=== PATIENT | female | born 1990 | race Caucasian/White ===

== ENCOUNTER 2019-11-01 07:22 | Emergency (ER) | payer SELFPAY ==
--- NOTE | ~2019-11-01 | CT_ITS ---
EXAMINATION: CT abdomen pelvis wo con DATE: 11/01/2019 08:05 INDICATION: Right flank pain TECHNIQUE: Computed tomography (CT) of the abdomen and pelvis was performed without intravenous contr ast. The dose-length product was 208.95 mGy-cm. Automated exposure control and iterative reconstructi on technique were employed. COMPARISON: None. FINDINGS: Lung bases are unremarkable. Heart size normal. No significant pleural or pericardial effus ion. There is a 3 mm calcification in the right pelvis, suspicious for a UVJ stone. No significant hy dronephrosis. There is a 4 mm nonobstructing left renal stone. There are smaller punctate stones in t he lower pole of the left kidney. The liver, spleen, pancreas, adrenal glands are unremarkable for noncontrast CT. Gallbladder is prese nt. Nonobstructive bowel gas pattern. No acute bone or joint abnormality. IMPRESSION: 1. Possible 3 mm right UVJ stone. No significant hydronephrosis. 2: Nonobstructing left nephrolithiasis. Reviewed, dictated and finalized at location A.
[2019-11-01 07:27] VITALS: BP 108/81; PULSE 82; RESP 19; TEMP 36.7; O2SAT 100
[2019-11-01 07:47] LABS: Basophils Percent Auto 0.5 % (0.2-1.2); Eosinophils Absolute Auto 0.3 K/mm3 (0-0.3); Eosinophils Percent Auto 3.2 % (0-4.4); Hematocrit 44.1 % (37.0-47.0); Hemoglobin 14.5 g/dL (12.0-15.0); Immature Granulocyte Absolute 0.02 K/mm3 (0.00-0.031); Immature Granulocyte Percent A 0.2 % (0-0.5); Lymphocytes Absolute Auto 2.17 K/mm3 (0.9-3.2); Lymphocytes Percent Auto 26.8 % (18.3-44.2); Mean Corpuscular HGB Conc 32.9 g/dl (32-36); Mean Corpuscular Hemoglobin 29.9 pg (26-34); Mean Corpuscular Volume 90.9 fl (80-100); Mean Platelet Volume 9.1 fl (7.4-10.4); Monocytes Absolute Auto 0.5 K/mm3 (0.1-0.6); Monocytes Percent Auto 5.8 % (2.6-8.5); Neutrophils Absolute Auto 5.1 K/mm3 (1.3-6.7); Neutrophils Percent Auto 63.5 % (45.5-73.1); Platelet Count Result 300 k/mm3 (150-375); Red Blood Count 4.85 M/mm3 (4.2-5.4); Red Cell Distribution Width 13.4 % (11.5-14.5); White Blood Count 8.1 K/mm3 (4.5-10.0)
[2019-11-01] MEDS: KETOROLAC 30 MG/ML VIAL (*BKC) IV PUSH (07:47)
--- NOTE | 2019-11-01 07:59 | ED.FEMALEGU ---
HPI - Female Genitourinary General Chief complaint: Urogenital-Female Stated complaint: ?? kidney stones Time Seen by Provider: 11/01/19 07:30 History of Present Illness HPI Narrative: Patient is a 29-year-old female with history of kidney stones who presents the ER with sudden onset right flank pain right lower quadrant abdominal pain beginning this morning. Associated with urinary frequency and urgency as well as small volumes of urine when voiding. No aggravating or alleviating factors. Pain radiates from flank to abdomen. No fever/chills/sweats/nausea/vomiting. No recent travel. Related Data Allergies Allergy/AdvReac Type Severity Reaction Status Date / Time Penicillins Allergy Severe Unknown Verified 11/01/19 07:37 Review of Systems Review of Systems: All systems reviewed & are unremarkable except as noted in HPI and below Constitutional: Constitutional: Denies chills and Denies fever(s) Gastrointestinal: Gastrointestinal: Reports abdominal pain, Denies diarrhea, Denies nausea and Denies vomiting Genitourinary: Genitourinary: Denies hematuria, Reports nocturia, Reports dysuria and Reports urinary urgency [facility] Past Medical History Medical History (Updated 11/01/19 @ 09:43 by Michele Austin MD) Kidney stones Surgical History Surgical History (Updated 11/01/19 @ 08:01 by Michele Austin MD) No pertinent past surgical history Social History Social History (Updated 11/01/19 @ 08:01 by Michele Austin MD) Smoking status: Current every day smoker Alcohol intake: current Substance use type: marijuana Gender identity (if verbalized by the patient): Female Exam Narrative: Exam Narrative: GENERAL: Well-appearing, well-nourished, and in no acute distress. HEAD: Normocephalic, atraumatic. ENT: Mucous membranes moist. CHEST: Clear to auscultation. No respiratory distress. HEART: Regular rate and rhythm. Normal peripheral pulses. ABDOMEN: Soft, mild right lower quadrant abdominal tenderness, nondistended, right CVA tenderness. EXTREMITIES: Normal range of motion. No edema. NEURO: Alert and oriented x3. PSYCH: Normal mood and affect. Course Course Emergency Course: Informed of results. Pain improved. D/c. Vital Signs Vital signs: Vital Signs Temperature 98.0 F 11/01/19 07:27 Pulse Rate 82 11/01/19 07:27 Respiratory Rate 19 03/21/20 07:27 Blood Pressure 108/81 11/01/19 07:27 Pulse Oximetry 100 11/01/19 07:27 Temperature 98.0 F 11/01/19 07:27 Pulse Rate 82 11/01/19 07:27 Respiratory Rate 19 11/01/19 07:27 Blood Pressure 108/81 11/01/19 07:27 Pulse Oximetry 100 11/01/19 07:27 MDM - Female Genitourinary Lab Data Result diagrams: 11/01/19 07:41 11/01/19 07:41 Labs: Lab Results 11/01/19 11/01/19 11/01/19 Range/Units 07:41 07:41 07:52 WBC 8.1 (4.5-10.0) K/mm3 RBC 4.85 (4.2-5.4) M/mm3 Hgb 14.5 (12.0-15.0) g/dL Hct 44.1 (37.0-47.0) % MCV 90.9 (80-100) fl MCH 29.9 (26-34) pg MCHC 32.9 (32-36) g/dl RDW 13.4 (11.5-14.5) % Plt Count 300 (150-375) k/mm3 MPV 9.1 (7.4-10.4) fl Immature Gran % (Auto) 0.2 (0-0.5) % Neut % (Auto) 63.5 (45.5-73.1) % Lymph % (Auto) 26.8 (18.3-44.2) % [place] % (Auto) 5.8 (2.6-8.5) % Eos % (Auto) 3.2 (0-4.4) % Baso % (Auto) 0.5 (0.2-1.2) % Lymph # (Auto) 2.17 (0.9-3.2) K/mm3 [place] # (Auto) 0.5 (0.1-0.6) K/mm3 Eos # (Auto) 0.3 (0-0.3) K/mm3 Baso # (Auto) 0.0 (0.0-0.1) K/mm3 Abs Immat Gran (auto) 0.02 (0.00-0.031) K/mm3 Absolute Neuts (auto) 5.1 (1.3-6.7) K/mm3 Absolute Nucleated RBC 0.0 (0.0-0.012) K/mm3 Nucleated RBC % 0.0 (0.0-0.2) % Sodium 137 (137-145) mmol/L Potassium 4.4 (3.4-5.0) mmol/L Chloride 105 (98-107) mmol/L Carbon Dioxide 27 (22-30) mmol/L BUN 13 (7-17) mg/dL Creatinine 0.80 (0.7-1.0) mg/dL Estim Creat Clear Calc 77 ml/min Est
[2019-11-01 08:09] LABS: Blood Urea Nitrogen 13 mg/dL (7-17); Calcium 9.3 mg/dL (8.4-10.2); Carbon Dioxide 27 mmol/L (22-30); Chloride 105 mmol/L (98-107); Estimated CRCL calculation 77 ml/min; Estimated Glomerular Filt Rate > 60; Glucose 93 mg/dL (65-105); Potassium 4.4 mmol/L (3.4-5.0); Sodium 137 mmol/L (137-145)
[2019-11-01 08:10] LABS: Add Urine Microscopic? YES; Appearance Urine Clear (Clear); Bacteria Urine Trace /hpf; Bilirubin Urine Negative (Negative); Blood Urine 1+ (Negative); Color Urine Yellow (Yellow); Glucose Urine UA Negative (Negative); Ketones Urine Negative (Negative); Leukocyte Esterase Ur Negative LEU/UL (Negative); Mucus Urine Rare /lpf; Nitrate Urine Negative (Negative); Protein Urine Negative (Negative); Specific Grav Ur 1.017 (1.001-1.035); Squamous Epithelial Cell Urine Few /hpf (Few); Urobilinogen Urine Negative mg/dL (<2.0); WBC Urine 0-3 /hpf
[2019-11-01 10:19] VITALS: BP 112/69; PULSE 62; RESP 16; O2SAT 100
== END 2019-11-01 10:24 | disposition home or self-care (01) ==
PROVIDERS: Emergency Provider Emergency Medicine
DX: N20.2 Calculus of kidney with calculus of ureter (principal); Z87.442 Personal history of urinary calculi; F17.200 Nicotine dependence, unspecified, uncomplicated
CPT/HCPCS: 36415; 74176; 80048; 81001; 81025; 85025; 96374; 99284; J1885

== ENCOUNTER 2020-11-30 10:30 | Day surgery (SDC) | payer OTHER, SELFPAY ==
[2020-11-30] VITALS (10 sets, daily range): BP systolic 96–117; BP diastolic 64–93; PULSE 52–93; RESP 14–20; TEMP 36.2–36.8; O2SAT 98–100
--- NOTE | ~2020-11-30 | CT_ITS ---
EXAMINATION: CT abdomen pelvis wo con DATE: 11/30/2020 13:48 INDICATION: Left flank pain. TECHNIQUE: Computed tomography (CT) of the abdomen and pelvis was performed without intravenous contr ast. Automated exposure control and iterative reconstruction technique were employed. The dose-length product was 167.00 mGy-cm. COMPARISON: CT abdomen and pelvis 11/01/2019 FINDINGS: The visualized portions of the lung bases demonstrate minimal atelectasis on the left. No p leural effusion. The heart size is normal. No pericardial effusion. The liver, gallbladder, and pancr eas are normal. Calcifications in the spleen are consistent with old granulomatous disease. The adren al glands and right kidney are normal. There is mild left hydronephrosis and hydroureter. There is a 5 mm stone in left ureter where it crosses the iliac vessels. There are no dilated loops of bowel. Th e appendix is normal. There are no pathologically enlarged lymph nodes. There is no free intraperiton eal fluid. The bones are unremarkable. IMPRESSION: 1. 5 mm stone in mid left ureter with mild left hydronephrosis and proximal hydroureter. Reviewed, dictated and finalized at location B. IMPRESSION: 1. 5 mm stone in mid left ureter with mild left hydronephrosis and proximal hyd roureter.
--- NOTE | ~2020-11-30 | XR_ITS ---
EXAMINATION: XR retrograde pyelo w/stent LT DATE: 11/30/2020 16:28 INDICATION: Left ureteral stone. TECHNIQUE: 8 intraoperative fluoroscopic views of the abdomen and pelvis were obtained. COMPARISON: CT abdomen and pelvis 11/30/2020 FINDINGS: The sewage plant attendant images demonstrate a 5 mm stone in the left ureter overlying the sacrum. The left -sided retrograde pyelogram is unremarkable. The final images demonstrate a left internal ureteral st ent in expected position. IMPRESSION: 1. Left ureteral stone removal. 2. Left internal ureteral stent in expected position. Reviewed, dictated and finalized at location B.
[2020-11-30 11:05] LABS: Anion Gap 7 mmol/L (8-16); Blood Urea Nitrogen 8 mg/dL (7-17); Calcium 9.1 mg/dL (8.4-10.2); Carbon Dioxide 27 mmol/L (22-30); Chloride 106 mmol/L (98-107); Estimated CRCL calculation 82 ml/min; Estimated Glomerular Filt Rate > 60; Glucose 89 mg/dL (65-105); Potassium 4.1 mmol/L (3.4-5.0); Sodium 140 mmol/L (137-145)
[2020-11-30 11:09] LABS: Basophils Percent Auto 0.4 % (0.2-1.2); Eosinophils Absolute Auto 0.1 K/mm3 (0-0.3); Eosinophils Percent Auto 1.1 % (0-4.4); Hematocrit 40.1 % (37.0-47.0); Hemoglobin 12.9 g/dL (12.0-15.0); Immature Granulocyte Absolute 0.03 K/mm3 (0.00-0.031); Immature Granulocyte Percent A 0.4 % (0-0.5); Lymphocytes Absolute Auto 1.69 K/mm3 (0.9-3.2); Lymphocytes Percent Auto 21.4 % (18.3-44.2); Mean Corpuscular HGB Conc 32.2 g/dl (32-36); Mean Corpuscular Hemoglobin 29.5 pg (26-34); Mean Corpuscular Volume 91.8 fl (80-100); Monocytes Absolute Auto 0.6 K/mm3 (0.1-0.6); Monocytes Percent Auto 8.1 % (2.6-8.5); Neutrophils Absolute Auto 5.4 K/mm3 (1.3-6.7); Neutrophils Percent Auto 68.6 % (45.5-73.1); Platelet Count Result 337 k/mm3 (150-375); Red Blood Count 4.37 M/mm3 (4.2-5.4); Red Cell Distribution Width 13.2 % (11.5-14.5); White Blood Count 7.9 K/mm3 (4.5-10.0)
[2020-11-30 11:14] LABS: Add Urine Microscopic? YES; Appearance Urine Cloudy (Clear); Bacteria Urine Trace /hpf; Bilirubin Urine Negative (Negative); Blood Urine 3+ (Negative); Color Urine Yellow (Yellow); Glucose Urine UA Negative (Negative); Ketones Urine 1+ mg/dL (Negative); Leukocyte Esterase Ur 3+ LEU/UL (Negative); Mucus Urine Heavy /lpf; Nitrate Urine Negative (Negative); Protein Urine 2+ mg/dL (Negative); RBC Urine >75 /hpf (0-2); Specific Grav Ur 1.015 (1.001-1.035); Squamous Epithelial Cell Urine Few /hpf (Few); Urobilinogen Urine Negative mg/dL (<2.0); WBC Urine >75 /hpf
--- NOTE | 2020-11-30 13:36 | ED.ABDPAIN ---
HPI - Abdominal Pain General Chief Complaint: Abdominal Pain Stated Complaint: ?? kidney stones Time Seen by Provider: 11/30/20 12:15 Source: patient Mode of arrival: ambulatory Limitations: no limitations History of Present Illness HPI narrative: Patient is a 30-year-old female with a history of nephrolithiasis who presents for evaluation of left flank pain. Patient reports worsening flank pain over the past week. Pain at first was dull, aching in nature, sharp at times. She also reports associated dysuria and hematuria as well as pressure in the lower pelvis. No vaginal discharge or vaginal bleeding. She reports fever, chills, nausea and vomiting. She does have a history of renal stones, but states she passed one previously a couple years ago and has never had any complications from this. She is originally from [place] does not follow with a urologist in the area. Last oral intake was yesterday, over 12 hours ago. Related Data Home Medications Medication Instructions Recorded Confirmed No Home Medications 11/30/20 11/30/20 Allergies Allergy/AdvReac Type Severity Reaction Status Date / Time Penicillins Allergy Severe Unknown Verified 11/30/20 11:13 Review of Systems Review of Systems: Narrative: CONSTITUTIONAL: Reports fever and chills EYES: Denies visual changes, redness, or discharge. ENT: Denies rhinorrhea, congestion, sore throat, or otalgia. CARDIOVASCULAR: Denies chest pain, palpitations, or edema. RESPIRATORY: Denies cough or dyspnea. GASTROINTESTINAL: Denies abdominal pain, nausea, vomiting and left flank pain GENITOURINARY: Reports dysuria and hematuria SKIN: Denies rash or itching. MUSCULOSKELETAL: Denies back pain, joint pain, or myalgia. NEUROLOGIC: Denies headache, numbness, or weakness. [facility] Past Medical History Medical History Kidney stones Surgical History Surgical History No pertinent past surgical history Social History Social History Smoking status: Current every day smoker Alcohol intake: current Substance use type: marijuana Gender identity (if verbalized by the patient): Female Exam Narrative: Exam Narrative: GENERAL: Awake, alert, conversant, tearful HEAD: Normocephalic, atraumatic. EYES: PERRLA and EOMI. ENT: Nares clear, no rhinorrhea or epistaxis. Mucous membranes moist. NECK: Supple. CHEST: No respiratory distress, breathing even and non labored HEART: Regular rate, sinus rhythm ABDOMEN:Non distended, nontender in all 4 quadrants, no rebound, no guarding, mild left flank tenderness EXTREMITIES: Normal range of motion. No edema. SKIN: Warm, dry, no rash. NEURO:No focal deficits. Alert and oriented x3 Course Vital Signs Vital signs: Vital Signs Temperature 36.8 C 11/30/20 10:44 Pulse Rate 93 11/30/20 10:44 Respiratory Rate 18 11/30/20 10:44 Blood Pressure 113/69 11/30/20 10:44 Pulse Oximetry 100 11/30/20 10:44 Temperature 36.8 C 11/30/20 10:44 Pulse Rate 74 11/30/20 15:05 Respiratory Rate 16 11/30/20 15:05 Blood Pressure 108/70 11/30/20 15:05 Pulse Oximetry 100 11/30/20 15:05 MDM - Abdominal Pain MDM Narrative Medical decision making narrative: Patient presented for evaluation of dysuria, left flank pain. At the time of assessment, and vital signs are stable. Patient is not hypotensive or febrile. Laboratory results show no leukocytosis. No acute kidney injury. Patient does have a urinalysis that is consistent with a urinary tract infection. Patient on imaging does have a 5 mm left ureteral stone. Urology was consulted. Patient given IV Rocephin, fluids, antiemetic and pain medication in the ER. Pt kept NPO likely taken for stenting. Differential Diagnosis Differential diagnosis: Likely abdominal pain, calculus of kidney, constipation,
[2020-11-30] MEDS: SODIUM CHLORIDE 0.9% IV 1,000 ML 999 ML IV CONT (14:00)
[2020-11-30] MEDS: ONDANSETRON INJ 4 MG/2 ML VIAL IV PUSH (14:01)
[2020-11-30] MEDS: MORPHINE SULFATE (*CRX) 4 MG/ML INJ IV PUSH (14:43)
--- NOTE | 2020-11-30 14:54 | PM.IMHP ---
H&P: HPI History of Present Illness Date/Time: 11/30/20 14:54 Chief Complaint: Left ureteral calculus with renal colic and hydro Narrative: 30-year-old female who presented emergency room with some symptoms of a UTI with dysuria an undocumented fever earlier in the week. She continued to have some nausea with pain in the left flank presented. Evaluation reveals a 5 mm left mid to distal ureteral calculus. She is afebrile in the emergency room with a normal white count. Urinalysis is nitrate negative but leukocyte esterase positive with greater than 75 white cells. Patient continues to have discomfort will require intervention. Review of Systems Review of Systems: All systems reviewed & are unremarkable except as noted in HPI and below PMFSH Past Medical History Medical History Kidney stones Surgical History Surgical History No pertinent past surgical history Social History Social History Smoking status: Current every day smoker Alcohol intake: current Substance use type: marijuana Gender identity (if verbalized by the patient): Female Meds Home Medications and Allergies Home Medications Medication Instructions Recorded Confirmed Type No Home Medications 11/30/20 11/30/20 History Allergies Allergy/AdvReac Type Severity Reaction Status Date / Time Penicillins Allergy Severe Unknown Verified 11/30/20 11:13 Vital Signs Vital Signs - 24 hr 11/30/20 10:44 11/30/20 14:45 Temperature 36.8 C Pulse Rate 93 75 Respiratory Rate 18 16 Blood Pressure 113/69 114/78 Pulse Oximetry 100 100 Exam Const: General: cooperative Resp: Effort & Inspection: normal respiratory effort Cardio: Rate: regular rate Rhythm: regular rhythm GI: Inspection: normal to inspection Skin: General skin exam: normal color H&P: Results Labs Labs: Short CBC 11/30/20 Range/Units 10:48 WBC 7.9 (4.5-10.0) K/mm3 Hgb 12.9 (12.0-15.0) g/dL Hct 40.1 (37.0-47.0) % Plt Count 337 (150-375) k/mm3 BMP 11/30/20 10:48 Sodium 140 Potassium 4.1 Chloride 106 Carbon Dioxide 27 BUN 8 D Creatinine 0.70 Glucose 89 Calcium 9.1 Urine 11/30/20 Range/Units 10:53 Urine Color Yellow (Yellow) Urine Appearance Cloudy H (Clear) Urine pH 5.0 (5.0-9.0) Ur Specific [place] 1.015 (1.001-1.035) Urine Protein 2+ H (Negative) mg/dL Urine Glucose (UA) Negative (Negative) mg/dL Assessment and Plan Assessment and plan (1) Left ureteral calculus: Code(s): N20.1 - Calculus of ureter Status: Acute Assessment and Plan: Plan for cysto left retrograde pyelogram left stent placement with possible ureteroscopy and stone extraction. Whether we proceed will depend on how the efflux looks at the time of placement of a guidewire. (2) UTI (urinary tract infection): Qualifiers: Urinary tract infection type: acute pyelonephritis Qualified Code(s): N10 - Acute pyelonephritis Code(s): N39.0 - Urinary tract infection, site not specified Status: Acute Assessment and Plan: Culture pending will be discharged home if stable with antibiotics.
--- NOTE | 2020-11-30 15:36 | WPDANESEPPF ---
Anes - Initial Pre Proc Eval Procedure: Operation Date: 11/30/20 17:15 Proposed Procedures p Cystoscopy,Left Retrograde Pyelogram,Left Stent Placement,Possible Stone Extraction,Possible Holmium Laser. - Ricky Yo MD Date/Time: 11/30/20 15:36 Surgeon: Ricky Yo MD Pre Op Diagnosis: ?? kidney stones Patient Data Age: 30 Gender: F Height: 5 ft 3 in Weight: 56.7 kg Last Vital Signs Temp 36.8 C 11/30/20 10:44 Pulse 74 11/30/20 15:05 Resp 16 11/30/20 15:05 BP 108/70 11/30/20 15:05 Pulse Ox 100 11/30/20 15:05 Allergies Allergy/AdvReac Type Severity Reaction Status Date / Time Penicillins Allergy Severe Unknown Verified 11/30/20 11:13 Home Medications Medication Instructions Recorded Confirmed Type No Home Medications 11/30/20 11/30/20 History Laboratory Tests 11/30/20 11/30/20 11/30/20 10:48 10:48 10:53 WBC 7.9 K/mm3 K/mm3 (4.5-10.0) RBC 4.37 M/mm3 M/mm3 (4.2-5.4) Hgb 12.9 g/dL g/dL (12.0-15.0) Hct 40.1 % % (37.0-47.0) MCV 91.8 fl fl (80-100) MCH 29.5 pg pg (26-34) MCHC 32.2 g/dl g/dl (32-36) RDW 13.2 % % (11.5-14.5) Plt Count 337 k/mm3 k/mm3 (150-375) MPV 9.0 fl fl (7.4-10.4) Immature Gran % (Auto) 0.4 % % (0-0.5) Neut % (Auto) 68.6 % % (45.5-73.1) Lymph % (Auto) 21.4 % % (18.3-44.2) [place] % (Auto) 8.1 % % (2.6-8.5) Eos % (Auto) 1.1 % % (0-4.4) Baso % (Auto) 0.4 % % (0.2-1.2) Lymph # (Auto) 1.69 K/mm3 K/mm3 (0.9-3.2) [place] # (Auto) 0.6 K/mm3 K/mm3 (0.1-0.6) Eos # (Auto) 0.1 K/mm3 K/mm3 (0-0.3) Baso # (Auto) 0.0 K/mm3 K/mm3 (0.0-0.1) Abs Immat Gran (auto) 0.03 K/mm3 K/mm3 (0.00-0.031) Absolute Neuts (auto) 5.4 K/mm3 K/mm3 (1.3-6.7) Absolute Nucleated RBC 0.0 K/mm3 K/mm3 (0.0-0.012) Nucleated RBC % 0.0 % % (0.0-0.2) Sodium 140 mmol/L mmol/L (137-145) Potassium 4.1 mmol/L mmol/L (3.4-5.0) Chloride 106 mmol/L mmol/L (98-107) Carbon Dioxide 27 mmol/L mmol/L (22-30) Anion Gap 7 mmol/L L mmol/L (8-16) BUN 8 mg/dL D mg/dL (7-17) Creatinine 0.70 mg/dL mg/dL (0.7-1.0) Estim Creat Clear Calc 82 ml/min ml/min Estimated GFR > 60 (59 - ) Glucose 89 mg/dL mg/dL (65-105) Calcium 9.1 mg/dL mg/dL (8.4-10.2) Urine Color Yellow (Yellow) Urine Appearance Cloudy H (Clear) Urine pH 5.0 (5.0-9.0) Ur Specific [place] 1.015 (1.001-1.035) Urine Protein 2+ mg/dL H mg/dL (Negative) Urine Glucose (UA) Negative mg/dL mg/dL (Negative) Urine Ketones 1+ mg/dL H mg/dL (Negative) Ur Blood (Man) 3+ H (Negative) Urine Nitrate Negative (Negative) Urine Bilirubin Negative (Negative) Urine Urobilinogen Negative mg/dL mg/dL (<2.0) Leukocyte Esterase Rfl 3+ BOBBI/UL H BOBBI/UL (Negative) Urine RBC >75 /hpf H /hpf (0-2) Urine WBC >75 /hpf H /hpf Ur Squamous Epith Cells Few /hpf /hpf (Few) Urine Bacteria Trace /hpf /hpf Urine Mucus Heavy /lpf H /lpf Patient hx anesthesia problems: none Family hx anesthesia problems: none PMFSH Past Medical History Medical History Kidney stones Surgical History Surgical History No pertinent past surgical history Social History Social History Smoking status: Current every day smoker Alcohol intake: current Substance use type: marijuana Gender identity (if verbalized by the patient):
[2020-11-30] MEDS: LACTATED RINGERS 1,000 ML 30 ML IV CONT ×2 (15:40→16:30)
[2020-11-30] MEDS: LIDOCAINE HCL 2% GEL UROJET 10 ML PKG MUCOUS MEM (16:04)
--- NOTE | 2020-11-30 16:25 | P.OP_ITS ---
Procedure Note - Detailed Date of procedure: 11/30/20 Pre-op diagnosis: ?? kidney stones Obstructing 5 mm left ureteral calculus Post-op diagnosis: same Procedure performed: Cystoscopy, left retrograde pyelogram, left ureteroscopy with stone extraction, left ureteral stent placement 4.8 [place] contour Description of procedure: Patient is taken the operative suite correctly identified. Once anesthesia was obtained she was placed in dorsal lithotomy position and prepped and draped usual sterile fashion. Twenty-two [place] scope was inserted in to the bladder. The bladder is inspected entirety. There are no tumors noted. A guidewire was placed into the left ureteral orifice past the stone. We dilated with an 8/10 dilator. There was no evidence of purulence coming from the orifice and thus we decided to proceed with ureteroscopy. Rigid ureteral scope was inserted. The stone was visualized and were able to place an escape basket around it retrieve in 1 piece. Pyelogram was then performed to confirm placement of the stent. 4.8 [place] contour stent was then placed with the proximal end coiled in the renal pelvis and the distal in the bladder. Bladder is drained. 2% viscous lidocaine was inserted urethra patient is taken recovery stable condition. She will follow up in a week's time for stent removal. Call for that appointment. Anesthesia: GLMA Surgeon: Ricky Yo MD Drains: Yes Packing: No Pathology: yes Complications: No immediate complications Condition: stable Disposition: PACU
== END 2020-11-30 18:00 | disposition home or self-care (01) ==
LOC: ANHED 14:55 → ANHSURGERY 14:57
PROVIDERS: Emergency Provider Emergency Medicine; PCP Family Medicine; Visit Provider Urology
PROC: (CPT 52352; principal; 2020-11-30 17:15)
DX: N20.1 Calculus of ureter (principal); N10 Acute pyelonephritis; F12.90 Cannabis use, unspecified, uncomplicated
CPT/HCPCS: 52352; 52332; 36415; 74176; 74420; 80048; 81001; 81025; 82365; 85025; 87077; 87086; 87088; 87186; 88300; 96365; 96375; 99285; C1758; C1769; C2617; J0696; J1100; J2250; J2270; J2405; J2704; J3010; J7030; J7120; Q9966

== ENCOUNTER 2021-10-01 05:14 | Emergency (ER) | payer OTHER, SELFPAY ==
--- NOTE | ~2021-10-01 | XR_ITS ---
EXAMINATION: XR foot RT min 3V DATE: 10/01/2021 05:46 INDICATION: Right foot pain at the fifth metatarsal and fourth and fifth toes TECHNIQUE: Dorsoplantar, two oblique and lateral views of the right foot were obtained. COMPARISON: None. FINDINGS: Alignment is normal. No fracture. Joint spaces are normal. Soft tissues are unremarkable. IMPRESSION: 1. . Negative right foot radiographs. Reviewed, dictated and finalized at location A. F [employer]
[2021-10-01 05:20] VITALS: BP 117/76; PULSE 100; RESP 18; TEMP 37.1; O2SAT 100
--- NOTE | 2021-10-01 05:24 | ED.LOWEXIN ---
HPI - Extremity Injury (Lower) General Chief Complaint: Extremity Injury, Lower Stated Complaint: Right foot pain, denies injury Time Seen by Provider: 10/01/21 05:17 History of Present Illness HPI Narrative: Patient is a 31-year-old female who presents ER with right foot pain. Ongoing for 2 days. Along the midfoot and fifth metatarsal. No trauma. No redness or swelling. Reports she woke up this morning toes felt a little tingly. Denies fevers or chills or sweats. Pain is worse with prolonged standing while at work. Related Data Allergies Allergy/AdvReac Type Severity Reaction Status Date / Time Penicillins Allergy Severe Unknown Verified 10/01/21 05:23 Review of Systems Constitutional: Constitutional: Denies chills and Denies fever(s) Musculoskeletal: Musculoskeletal: Denies myalgias, Reports arthralgias, Denies joint swelling and Denies muscle cramps Neurologic: Denies syncope, Denies focal weakness and Denies numbness Comments: Tingling of right toes PMFSH Past Medical History Medical History Kidney stones Surgical History Surgical History No pertinent past surgical history Social History Social History Smoking status: Current every day smoker Alcohol intake: current Substance use type: marijuana Gender identity (if verbalized by the patient): Female Exam Narrative: GENERAL: Well-appearing, well-nourished, and in no acute distress. HEAD: Normocephalic, atraumatic. CHEST: Clear to auscultation. No respiratory distress. HEART: Regular rate and rhythm. Normal peripheral pulses. EXTREMITIES: Tender to palpation base of fifth metatarsal without redness or swelling or contusion. Additional discomfort over the proximal metatarsals of the third and fourth. Again no swelling or bruising or evidence of injury. Normal range of motion and strength of the toes and ankle. SKIN: Warm, dry, no rash. NEURO: Alert and oriented x3. PSYCH: Normal mood and affect. Course Course Emergency Course: Informed of results. D/c home. Vital Signs Vital signs: Vital Signs Temperature 98.8 F 10/01/21 05:20 Pulse Rate 100 02/19/22 05:20 Respiratory Rate 18 10/01/21 05:20 Blood Pressure 117/76 10/01/21 05:20 Pulse Oximetry 100 10/01/21 05:20 Temperature 98.8 F 10/01/21 05:20 Pulse Rate 100 10/01/21 05:20 Respiratory Rate 18 10/01/21 05:20 Blood Pressure 117/76 10/01/21 05:20 Pulse Oximetry 100 10/01/21 05:20 MDM - Extremity Injury (Lower) Imaging Data My impression: X-ray right foot: No acute fracture. Discharge Plan Discharge Clinical Impression: Foot sprain Patient Disposition: Home, Self-Care Condition: Stable Instructions: Foot Sprain (ED) Additional Instructions: Return the ER if you have fever of 100.4 ?F, you cannot keep down food or water, you suffer new injury to your foot, you have additional concerns. Prescriptions: New ibuprofen 600 mg tablet 600 mg PO TID Qty: 20 RF: 0 Follow-up/Referrals: Rony Richey MD [Physician] - 1 Week PHYSICIAN,[employer] [Primary Care Provider] - Stand Alone Forms: Work/School Release IP
[2021-10-01] MEDS: IBUPROFEN 600 MG TABLET PO (05:37)
== END 2021-10-01 06:52 | disposition home or self-care (01) ==
PROVIDERS: Emergency Provider Emergency Medicine
DX: S93.601A Unspecified sprain of right foot, initial encounter (principal); Z87.442 Personal history of urinary calculi; F17.200 Nicotine dependence, unspecified, uncomplicated; X58.XXXA Exposure to other specified factors, initial encounter
CPT/HCPCS: 73630; 99283; A9270

== ENCOUNTER 2022-04-24 11:18 | Emergency (ER) | payer OTHER, SELFPAY ==
[2022-04-24 11:36] VITALS: BP 127/86; PULSE 91; RESP 18; TEMP 36.6; O2SAT 100
[2022-04-24] MEDS: HYDROcodone/acetaminophen (*CRX) 5-325 MG TABLET 1 TAB PO (12:39)
[2022-04-24 13:09] VITALS: TEMP 36.6
--- NOTE | 2022-04-24 13:21 | ED.GENADULT ---
HPI - General Adult General Chief complaint: Dental/Oral Stated complaint: dental abcess Time Seen by Provider: 04/24/22 12:05 History of Present Illness HPI narrative: Patient is a 31-year-old female who presents ER with right-sided dental pain. Located at tooth #31/32 as well as tooth #2. She has been on cephalexin for the last week without improvement in pain. No facial swelling. No difficulty breathing or swallowing. She has had some discomfort that goes down the right side of her neck. No limitation range of motion. Has been treating pain with ibuprofen without relief. She is also been applying heating pad to her jaw. Related Data Home Medications Medication Instructions Recorded Confirmed cephalexin 500 mg capsule mg 04/24/22 dextroamphetamine-amphetamine ER PO 04/24/22 20 mg 24hr capsule,extend release ergocalciferol (vitamin D2) 1,250 04/24/22 04/24/22 mcg (50,000 unit) capsule simvastatin 10 mg tablet mg 04/24/22 Allergies Allergy/AdvReac Type Severity Reaction Status Date / Time Penicillins Allergy Severe Unknown Verified 04/24/22 11:39 Review of Systems Review of Systems: All systems reviewed & are unremarkable except as noted in HPI and below Constitutional: Constitutional: Denies chills, Denies fatigue and Denies fever(s) ENT: Denies dysphagia, Denies nasal congestion and Denies sore throat Comments: Dental pain Respiratory: Respiratory: Denies cough and Denies dyspnea PMFSH Past Medical History Medical History Kidney stones Surgical History Surgical History No pertinent past surgical history Social History Social History Smoking status: Current every day smoker Alcohol intake: current Substance use type: marijuana Gender identity (if verbalized by the patient): Female Exam Narrative: GENERAL: Uncomfortable-appearing, well-nourished, and in no acute distress. HEAD: Normocephalic, atraumatic. ENT: Mucous membranes moist. Tender lower jaw on the right side near tooth 31 and on the upper part of the mouth near tooth #2 but no definitive abscess or swelling. Tolerating oral secretions without issue. NECK: Supple. Full range of motion. Trachea midline. EXTREMITIES: Normal range of motion. No edema. NEURO: Alert and oriented x3. PSYCH: Normal mood and affect. Course Course Emergency Course: Starr here. Will switch to clindamycin. Has f/u with dentist. Vital Signs Vital signs: Vital Signs Temperature 97.8 F 04/24/22 11:36 Pulse Rate 91 04/24/22 11:36 Respiratory Rate 18 04/24/22 11:36 Blood Pressure 127/86 04/24/22 11:36 Pulse Oximetry 100 04/24/22 11:36 Oxygen Delivery Room Air 04/24/22 11:36 Temperature 97.8 F 04/24/22 11:36 Pulse Rate 91 04/24/22 11:36 Respiratory Rate 18 04/24/22 11:36 Blood Pressure 127/86 04/24/22 11:36 Pulse Oximetry 100 04/24/22 11:36 Oxygen Delivery Room Air 04/24/22 11:36 Medical Decision Making Vital Signs Vital Signs: Vital Signs Temperature 97.8 F 04/24/22 11:36 Pulse Rate 91 04/24/22 11:36 Respiratory Rate 18 04/24/22 11:36 Blood Pressure 127/86 04/24/22 11:36 Pulse Oximetry 100 04/24/22 11:36 Oxygen Delivery Room Air 04/24/22 11:36 Temperature 97.8 F 04/24/22 11:36 Pulse Rate 91 04/24/22 11:36 Respiratory Rate 18 04/24/22 11:36 Blood Pressure 127/86 04/24/22 11:36 Pulse Oximetry 100 04/24/22 11:36 Oxygen Delivery Room Air 04/24/22 11:36 Discharge Plan Discharge Clinical Impression: Dental abscess Patient Disposition: Home, Self-Care Condition: Stable Instructions: Antibiotic Form, Dental Abscess (ED) Additional Instructions: Return to the ER if you cannot breathe, you cannot swallow, you have worsening pain, you have additional concerns. Prescr
[2022-04-24 13:36] VITALS: BP 104/64; PULSE 93; RESP 14; O2SAT 98
== END 2022-04-24 13:43 | disposition home or self-care (01) ==
PROVIDERS: Emergency Provider Emergency Medicine; PCP Family Medicine
DX: K04.7 Periapical abscess without sinus (principal); F12.90 Cannabis use, unspecified, uncomplicated
CPT/HCPCS: 99283; A9270

== ENCOUNTER 2023-09-14 09:03 | Emergency (ER) | payer OTHER, SELFPAY ==
[2023-09-14 09:19] VITALS: BP 107/78; PULSE 100; RESP 16; TEMP 36.9; O2SAT 100
--- NOTE | 2023-09-14 09:27 | ED.EAR ---
HPI - Ear Problem General Chief complaint: Ear Stated complaint: Left Ear Irritation Source: patient Mode of arrival: ambulatory Limitations: no limitations History of Present Illness HPI Narrative: Evelyn is a 33-year-old female patient presenting to the clinic today with complaints of left ear pain x1 week. States this morning her ear close shut. Attempted to use a ear wick candeling yesterday and this seemed to make the symptoms worse. She denies any fever or chills. Related Data Home Medications Medication Instructions Recorded Confirmed dextroamphetamine-amphetamine ER 20 mg PO DAILY 09/14/23 09/14/23 20 mg 24hr capsule,extend release meloxicam 15 mg tablet 15 mg PO DIRECTED 09/14/23 09/14/23 Allergies Allergy/AdvReac Type Severity Reaction Status Date / Time Penicillins Allergy Severe Unknown Verified 09/14/23 09:15 Review of Systems Review of Systems: Pertinent positives per HPI. Patient denies any fever, chills, rash, headache, visual changes, dizziness, cough, shortness of breath, chest pain, palpitations, nausea, vomiting, diarrhea, constipation, abdominal pain, or any urinary issues. [facility] Past Medical History Medical History Kidney stones Surgical History Surgical History No pertinent past surgical history Social History Social History Smoking status: Current every day smoker Alcohol intake: current Substance use type: marijuana Gender identity (if verbalized by the patient): Female Comments At the time of my signature, I reviewed and agree with the nursing past medical, surgical, social, and family history. There is no relevant family history pertinent to the patient complaint. Exam Narrative: General: Well-developed, well nourished, in no apparent distress Head: Normocephalic, atraumatic Eyes: Pupils equally round and reactive to light bilaterally, EOM intact, sclera and conjunctive clear, no discharge, lids normal Ears: TMs intact and clear, right ear canal clear, left ear canal red/swollen, and flucutant at the opening, ttp over the area, no drainage, right grossly hearing normal. Left ear muffled but improved after incision/drainage Nose: Nares patent, no discharge, no inflammation, no sinus tenderness. Mouth: Oral pharynx without lesions or masses, good dentition, MMM. Neck: Supple, trachea midline, no enlargement of anterior or posterior cervical nodes, no thyroid masses or goiter palpable. Cardio: Regular rate and rhythm, s1 and s2 normal, no murmur appreciated. Resp: Clear to auscultation bilaterally, no rhonchi, rales, wheezing or rubs Course Course Emergency Course: Portions of this record may have been created with voice recognition software. Level of Care: Express Care Visit Vital Signs Vital signs: Vital Signs Temperature 36.9 C 09/14/23 09:19 Pulse Rate 100 09/14/23 09:19 Respiratory Rate 16 09/14/23 09:19 Blood Pressure 107/78 09/14/23 09:19 Pulse Oximetry 100 09/14/23 09:19 Oxygen Delivery Room Air 09/14/23 09:19 Temperature 36.9 C 09/14/23 09:19 Pulse Rate 100 09/14/23 09:19 Respiratory Rate 16 09/14/23 09:19 Blood Pressure 107/78 09/14/23 09:19 Pulse Oximetry 100 09/14/23 09:19 Oxygen Delivery Room Air 09/14/23 09:19 Vital signs reviewed Medical Decision Making MDM Narrative Medical decision making narrative: At the time of visit patient is resting comfortably on the exam table. Patient appears to be nontoxic. Incision and drainage performed to left ear canal abscess. Yellow discharge was expressed and wound culture was obtained. Labs: Abscess culture of the left ear canal sent to lab. Plan: Replace the patient on clindamycin and some Cortisporin ear drops. Culture was sent to the lab. supportive measures w
== END 2023-09-14 10:00 | disposition home or self-care (01) ==
PROVIDERS: Emergency Provider Nurse Practitioner Family; PCP Family Medicine
DX: H60.02 Abscess of left external ear (principal); F17.200 Nicotine dependence, unspecified, uncomplicated; F12.90 Cannabis use, unspecified, uncomplicated
CPT/HCPCS: 69020; 87070; 87075; 87205; 99213; G0463

== ENCOUNTER 2024-07-17 09:27 | Outpatient (CLI) | payer OTHER, SELFPAY ==
[2024-07-17 10:46] LABS: Cholesterol 184 mg/dL (0-200); HDL Direct 71 mg/dL; Triglycerides 53 mg/dL (<150)
[2024-07-17 10:57] LABS: LDL Cholesterol Direct 79 mg/dL
== END 2024-07-17 09:28 | disposition home or self-care (01) ==
LOC: ANHLAB 09:29
PROVIDERS: PCP Family Medicine; Visit Provider Registered Nurse
DX: E78.5 Hyperlipidemia, unspecified (principal)
CPT/HCPCS: 36415; 80061

== ENCOUNTER 2025-02-02 09:19 | Outpatient (CLI) | payer OTHER, SELFPAY ==
[2025-02-02 09:49] LABS: Basophils Percent Auto 0.4 % (0.2-1.2); Eosinophils Absolute Auto 0.1 K/mm3 (0-0.3); Eosinophils Percent Auto 0.9 % (0-4.4); Hematocrit 39.5 % (37.0-47.0); Hemoglobin 12.9 g/dL (12.0-15.0); Immature Granulocyte Absolute 0.02 K/mm3 (0.00-0.031); Immature Granulocyte Percent A 0.2 % (0-0.5); Lymphocytes Absolute Auto 2.96 K/mm3 (0.9-3.2); Mean Corpuscular HGB Conc 32.7 g/dl (32-36); Mean Corpuscular Hemoglobin 29.7 pg (26-34); Mean Platelet Volume 8.6 fl (7.4-10.4); Monocytes Absolute Auto 0.5 K/mm3 (0.1-0.6); Monocytes Percent Auto 6.3 % (2.6-8.5); Neutrophils Absolute Auto 4.6 K/mm3 (1.3-6.7); Neutrophils Percent Auto 56.2 % (45.5-73.1); Platelet Count Result 331 k/mm3 (150-375); Red Blood Count 4.34 M/mm3 (4.2-5.4); White Blood Count 8.2 K/mm3 (4.5-10.0)
[2025-02-02 10:15] LABS: Alanine Aminotransferase 36 U/L (6-35); Albumin Level 4.5 g/dL (3.5-5.1); Alkaline Phosphatase 62 U/L (38-126); Anion Gap 6 mmol/L (4-12); Aspartate Amino Transferase 45 U/L (14-36); Bilirubin,Total 0.4 mg/dL (0.2-1.3); Blood Urea Nitrogen 9 mg/dL (7-17); Calcium 9.4 mg/dL (8.4-10.2); Carbon Dioxide 28 mmol/L (22-30); Chloride 103 mmol/L (98-107); Cholesterol 253 mg/dL (0-200); Estimated Glomerular Filt Rate > 60; Glucose 75 mg/dL (65-110); HDL Direct 74 mg/dL; Potassium 3.4 mmol/L (3.4-5.0); Sodium 137 mmol/L (137-145); Total Protein 7.2 g/dL (6.3-8.2); Triglycerides 48 mg/dL (<150)
[2025-02-02 10:25] LABS: LDL Cholesterol Direct 136 mg/dL
== END 2025-02-02 09:20 | disposition home or self-care (01) ==
LOC: ANHLAB 09:21
PROVIDERS: PCP Family Medicine; Visit Provider Family Medicine
DX: E78.5 Hyperlipidemia, unspecified (principal)
CPT/HCPCS: 36415; 80053; 80061; 85025

== ENCOUNTER 2025-03-10 11:54 | Emergency (ER) | payer OTHER, SELFPAY ==
--- NOTE | ~2025-03-10 | XR_ITS ---
XR hand LT min 3V 03/10/2025 13:02 Indication: Swelling left hand Procedure: 4 views left hand Comparison: No prior studies for comparison. Findings: There is a nondisplaced intra-articular avulsion fracture dorsal base fifth distal phalanx. No soft tissue abnormality. No foreign bodies. Impression: 1: Nondisplaced intra-articular avulsion fracture dorsal base left fifth distal phalanx, best seen on lateral view. Reviewed, dictated and finalized at location B. Impression: 1: Nondisplaced intra-articular avulsion fracture dorsal base left fifth distal phalanx, best seen on lateral view.
--- OUTSIDE RECORDS SUMMARY | 2025-03-10 11:56 | XMS_ITS | Clinical Summary ---
Author Organization [facility] Address [address] [place] [address] Care Team Providers Care Leather Belt Shaper Name Role Phone Rony Richey MD Primary Care Provider [phone] Allergies Active Allergy Reactions Criticality Noted Date Comments Penicillins Anaphylaxis High 10/19/2022 Medications amphetamine-dex troamphetamine XR (ADDERALL XR) 20 MG 24 hr capsule Take 1 capsule by mouth daily. 09/19/2022 Active Social History Tobacco Use Types Packs/Day Years Used Date Smoking Tobacco: Every Day Cigarettes Smokeless Tobacco: Never Alcohol Use Standard Drinks/Week Comments Yes 11.7 (1 standard drink = 0.6 oz pure alcohol) 1 beer daily Comments No Sex and Gender Information Value Date Recorded Sex Assigned at Not on file Legal Sex Female 12:25 AM CDT Gender Identity Not on file Sexual Orientation Not on file Last Filed Vital Signs Vital Sign Reading Time Taken Comments Blood Pressure 117/74 11/23/2023 1:44 PM CDT Pulse 75 11/23/2023 1:44 PM CDT Temperature 36.5 C (97.7 F) 11/23/2023 11:43 AM CDT Respiratory Rate 18 11/23/2023 1:44 PM CDT Oxygen Saturation 100% 11/23/2023 1:44 PM CDT Inhaled Oxygen Concentration - - Weight 54.3 kg (119 lb 11.4 oz) 024 11:43 AM CDT Height 162.6 cm (5' 4) 11/23/2023 11:4 3 AM CDT Body Mass Index 20.55 11/23/2023 11:43 AM CDT Plan of Treatment Health Maintenance Due Date Last Done Comments Cervical Cancer Screening Pa p Smear (Age 30 to 64) Every 3 Years 1988 Annual Physical 1991 Hepatitis C 2006 DTaP, Tdap and Td Vaccines ( 1 - Tdap) 2007 Hepatitis B Vaccines (1 of 3 - 19+ 3-dose series) 2007 Pneumococcal Vaccine: Pediat rics (0 to 5 Years) and At-Risk Patients (6 to 49 Years) (1 of 2 - PCV) 2007 HPV Vaccines (1 - 3-dose SCD M series) 2015 Cervical Cancer Screening Pa p with HPV Testing (Age 30 to 64) Every 5 Years 2018 Cervical Cancer Screening with HPV 2018 COVID-19 Vaccine (2023-2 5 season) 2024 Meningococcal B Vaccine Aged Out No l onger eligible based on patient's age to complete this topic Meningococcal Vaccine Aged Out No elizabeth jeremias eligible based on patient's age to complete this topic RSV Immunizations Under 20 Months Aged Out No longer eligible based on patient's age to complete this topic Insurance [place] [address] Care Teams Leather Belt Shaper Relationship Specialty Start Date End Date Rony Richey MD [address] [place] [address] PCP - General FAMILY PRACTICE 11/23/23
[2025-03-10 12:02] VITALS: BP 130/63; PULSE 103; RESP 20; TEMP 36.5; O2SAT 99
--- NOTE | 2025-03-10 13:54 | ED.UPPEXIN ---
HPI - Extremity Injury (Upper) General Chief Complaint: Extremity Injury, Upper Stated Complaint: left hand injury Time Seen by Provider: 03/10/25 14:00 History of Present Illness HPI narrative: 34-year-old female presents to the emergency department for left hand pain after punching a bag of charcoal around 5:00 a.m. this morning. Patient states she punched a bag of charcoal while work out of anger. She is reporting pain to her left 5th and 4th digits as well as her metacarpals. No other injuries. Related Data Home Medications ?Medication ?Instructions ?Recorded ?Confirmed ?Last Taken ?Type dextroamphetamine-amphetamine ER 20 mg PO DAILY 09/14/23 09/14/23 Unknown History 20 mg 24hr capsule,extend release meloxicam 15 mg tablet 15 mg PO DIRECTED 09/14/23 09/14/23 Unknown History Allergies Allergy/AdvReac Type Severity Reaction Status Date / Time Penicillins Allergy Severe Unknown Verified 09/14/23 09:15 Review of Systems Review of Systems: All systems reviewed & are unremarkable except as noted in HPI and below PMFSH Past Medical History Medical History Kidney stones Surgical History Surgical History No pertinent past surgical history Social History Social History Smoking status: Current every day smoker Alcohol intake: current Substance use type: marijuana Gender identity (if verbalized by the patient): Female Exam Narrative: GENERAL: Well-appearing, well-nourished, and in no acute distress. HEAD: Normocephalic, atraumatic. EYES: EOMI. ENT: Nares clear, no rhinorrhea or epistaxis. Mucous membranes moist. NECK: Supple. CHEST: Clear to auscultation. No respiratory distress. HEART: Regular rate and rhythm. No murmur heard. Normal peripheral pulses. EXTREMITIES: LUE: Tenderness to the 4th and 5th digits, more notably over the DIP of the 5th digit and 4th and 5th MCPs. Mild ecchymosis over the PIP. Patient does have full active passive range of motion with worsening pain with full extension and full flexion. Cap refill less than 2 throughout. Radial pulse 2 +. No tenderness remainder of hand or wrist. SKIN: Warm, dry, no rash. NEURO: No focal deficits. Alert and oriented x3 Course Vital Signs Vital signs: Vital Signs Temperature 97.7 F 03/10/25 12:02 Pulse Rate 103 H 03/10/25 12:02 Respiratory Rate 20 03/10/25 12:02 Blood Pressure 130/63 03/10/25 12:02 Pulse Oximetry 99 03/10/25 12:02 Oxygen Delivery Room Air 03/10/25 12:02 Temperature 97.7 F 03/10/25 12:02 Pulse Rate 103 H 03/10/25 12:02 Respiratory Rate 20 03/10/25 12:02 Blood Pressure 130/63 03/10/25 12:02 Pulse Oximetry 99 03/10/25 12:02 Oxygen Delivery Room Air 03/10/25 12:02 MDM - Extremity Injury (Upper) MDM Narrative Medical decision making narrative: 34-year-old female presents emergency department for left hand pain after punching a bag of charcoal this morning. Vitals with tachycardia of 103, otherwise unremarkable. Exam is notable for tenderness to the 4th and 5th digits, see above. She is neurovascularly intact. X-rays of the hand show Impression: 1: Nondisplaced intra-articular avulsion fracture dorsal base left fifth distal phalanx, best seen on lateral view. Patient updated on results. She was given a dose of [place] in the ED and placed in a finger splint. [place] provided for pain. Tylenol and ibuprofen sent home for pain control. Encourage RICE and f/u with hand surgery. Discussed strict ED return precautions. Patient is agreeable with the plan verbalized understanding. Discharged in stable condition. Discharge Plan Discharge Clinical Impression: Finger fracture, left Qualifiers: Encounter type: initial encounter Finger: little finger Fracture type: closed Phalanx: distal Fracture alignment: nondisplaced Qualified Code(s): S62.667A - Nondisplaced fracture of distal phalanx of left little finger, initial encounter for closed fracture Patient Disposition: Home Condition: Stable Instructions: Antibiotic Form, Finger Fracture (ED) Additional Instructions: You broke the distal aspect of your left 5th digit. Please rest, ice, elevate and keep your finger compressed. Follow-up closely with the hand surgeon. Take Tylenol ibuprofen as needed for pain. Return to the emergency department if he develops significantly worsening pain or other concerning symptoms. Patient Language: Frisian Prescriptions: New ibuprofen 800 mg tablet 800 mg PO TID PRN (Reason: pain) Qty: 20 0RF acetaminophen 500 mg capsule 1,000 mg PO Q6H PRN (Reason: pain) Qty: 20 0RF No Action dextroamphetamine-amphetamine 20 mg capsule,extended release 24hr 20 mg PO DAILY meloxicam 15 mg tablet 15 mg PO DIRECTED clindamycin HCl 300 mg capsule 300 mg PO Q8H 10 Days Qty: 30 0RF [id number]-[id number] 3.5-10,000-1 mg/mL-unit/mL-% drops,suspension 4 drp LEFT EAR Q8H 7 Days Qty: 10 0RF Follow-up/Referrals: Adeola Campos MD [Physician] - Rony Richey MD [Primary Care Provider] -
[2025-03-10] MEDS: HYDROcodone/acetaminophen (*CRX) 5-325 MG TABLET 1 TAB PO (13:58)
--- OUTSIDE RECORDS SUMMARY | 2025-03-10 13:59 | XMS_ITS | Clinical Summary ---
Author Organization [facility] Address [address] [place] [id number] Care Team Providers Care Radio Rigger Name Role Phone Rony Richey MD Primary Care Provider [phone] Allergies Active Allergy Reactions Criticality Noted Date [...] patient's age to complete this topic Insurance [facility] Care Teams Radio Rigger Relationship Specialty Start Date End Date Rony Richey MD [address] [place] [address] PCP - General FAMILY PRACTICE 11/23/23
== END 2025-03-10 14:04 | disposition home or self-care (01) ==
PROVIDERS: Emergency Provider Physician Assistant; PCP Family Medicine
DX: S62.667A Nondisplaced fracture of distal phalanx of left little finger, initial encounter for closed fracture (principal); Z87.442 Personal history of urinary calculi; W22.09XA Striking against other stationary object, initial encounter
CPT/HCPCS: 29130; 73130; 99284; A9270

== ENCOUNTER 2025-04-19 09:18 | Emergency (ER) | payer OTHER, SELFPAY ==
--- NOTE | ~2025-04-19 | XR_ITS ---
EXAMINATION: XR abdomen/kub 1V, 04/19/2025 11:25 CDT HISTORY: constipation COMPARISON: No comparisons available. Technique: 3 view. Findings: Moderate fecal content, no dilated bowel loops. Right inferior pole 2 mm renal calculus. No acute osseous abnormality. Impression: 1. No acute abnormality. Reviewed, dictated and finalized at location A. Impression: 1. No acute abnormality.
[2025-04-19 09:34] VITALS: BP 138/97; PULSE 69; RESP 16; TEMP 36.6; O2SAT 100
[2025-04-19 10:30] VITALS: BP 114/74; PULSE 63; RESP 18; TEMP 36.6; O2SAT 100
--- NOTE | 2025-04-19 10:42 | ED.GENADULT ---
HPI - General Adult General Chief complaint: Abdominal Pain Stated complaint: hemorrhoids, rectal pain Time Seen by Provider: 04/19/25 09:58 History of Present Illness HPI narrative: Patient is a 34-year-old female who presents to the ER with complaints rectal pain and swelling. She reports she has had intermittent constipation and diarrhea for the last 3-4 days. Patient reports she has been straining so much over the past 24 hours that she feels as though her rectum is falling out. She endorses an undiagnosed history of IBS. Patient also endorses a history of high cholesterol and ADD. She denies any abdominal pain, urinary symptoms, back pain, or recent fevers. Related Data Home Medications ?Medication ?Instructions ?Recorded ?Confirmed ?Last Taken ?Type dextroamphetamine-amphetamine ER 20 mg PO DAILY 09/14/23 09/14/23 Unknown History 20 mg 24hr capsule,extend release meloxicam 15 mg tablet 15 mg PO DIRECTED 09/14/23 09/14/23 Unknown History Allergies Allergy/AdvReac Type Severity Reaction Status Date / Time Penicillins Allergy Severe Unknown Verified 04/19/25 09:40 Review of Systems Review of Systems: All systems reviewed & are unremarkable except as noted in HPI and below PMFSH Past Medical History Medical History Kidney stones Surgical History Surgical History No pertinent past surgical history Social History Social History Smoking status: Current every day smoker Alcohol intake: current Substance use type: marijuana Gender identity (if verbalized by the patient): Female Exam Narrative: GENERAL: Well appearing, well-nourished, non-toxic, in no acute distress. HEAD: Normocephalic, atraumatic. NECK: Supple. No adenopathy, no masses. RESPIRATORY: Airway patent, respirations nonlabored. Clear to auscultation bilaterally, no rales, rhonchi, wheezing. CARDIOVASCULAR: Regular rate and rhythm without murmurs, rubs, or gallops. Peripheral pulses 2+ and equal bilaterally. ABDOMINAL: Soft, nontender, nondistended, no hepatosplenomegaly. Normoactive BS. MUSCULOSKELETAL: Moves all extremities. Strength/ROM intact without gross deformities. SKIN: Warm, dry, normal color. No rashes. NEURO: A&O X3. Speech clear. Cranial nerves II-XII intact. No ataxic movements. PSYCHIATRIC: Appropriate mood and affect. Normal interaction. : (correctional counselor present), visible external hemorrhoid, no rectal bleeding, no palpable internal hemorrhoid Course Vital Signs Vital signs: Vital Signs Temperature 36.6 C 04/19/25 09:34 Pulse Rate 69 04/19/25 09:34 Respiratory Rate 16 04/19/25 09:34 Blood Pressure 138/97 H 04/19/25 09:34 Pulse Oximetry 100 04/19/25 09:34 Oxygen Delivery Room Air 04/19/25 09:34 Temperature 36.6 C 04/19/25 11:17 Pulse Rate 77 04/19/25 11:17 Respiratory Rate 17 04/19/25 11:17 Blood Pressure 118/72 04/19/25 11:17 Pulse Oximetry 100 04/19/25 11:17 Oxygen Delivery Room Air 04/19/25 09:34 Medical Decision Making MDM Narrative Medical decision making narrative: Patient is a 34-year-old female who presents to the ER with complaints rectal pain and swelling. She reports she has had intermittent constipation and diarrhea for the last 3-4 days. Patient reports she has been straining so much over the past 24 hours that she feels as though her rectum is falling out. She endorses an undiagnosed history of IBS. Patient also endorses a history of high cholesterol and ADD. She denies any abdominal pain, urinary symptoms, back pain, or recent fevers. Labs Ordered: UA Imaging Ordered: KUB Medications Ordered: Anusol, [place] p.o., Bactrim p.o. Results: Patient's urinalysis indicates patient has UTI. Her KUB indicates patient has a moderate amount of fecal content. Diagnosis: Urinary tract infection, external hemorrhoids, mild constipation Patient Education/Shared MDM: Results of lab work and imaging shared with patient. She endorses mild improvement of symptoms following medication administration. Patient strongly advised to maintain hydration status upon discharge and follow-up with her PCP as needed. She will be discharged home with a prescription for Bactrim and Anusol. Patient reports she has stool softeners and laxatives at home. Strict return precautions provided. Patient verbalized understanding and is in agreement with plan. Vital signs stable at time of discharge. All questions answered. Differential Diagnosis Differential Diagnosis: Constipation, bowel obstruction, urinary tract infection, hemorrhoids Vital Signs Vital Signs: Vital Signs Temperature 36.6 C 04/19/25 09:34 Pulse Rate 69 04/19/25 09:34 Respiratory Rate 16 04/19/25 09:34 Blood Pressure 138/97 H 04/19/25 09:34 Pulse Oximetry 100 04/19/25 09:34 Oxygen Delivery Room Air 04/19/25 09:34 Temperature 36.6 C 04/19/25 11:17 Pulse Rate 77 04/19/25 11:17 Respiratory Rate 17 04/19/25 11:17 Blood Pressure 118/72 04/19/25 11:17 Pulse Oximetry 100 04/19/25 11:17 Oxygen Delivery Room Air 04/19/25 09:34 Lab Data Lab results reviewed: Yes I reviewed the patient's lab results. Labs: Lab Results 04/19/25 Range/Units 11:11 Urine Color Yellow (Yellow) Urine Appearance Sl cloudy (Clear) Urine pH 7.0 (5.0-9.0) Ur Specific Pray 1.020 (1.001-1.035) Urine Protein Negative (Negative) mg/dL Urine Glucose (UA) Negative (Negative) mg/dL Urine Ketones Negative (Negative) mg/dL Ur Blood (Man) Trace-intact H (Negative) Urine Nitrate Positive H (Negative) Urine Bilirubin Negative (Negative) Urine Urobilinogen 0.2 (<2.0) mg/dL Leukocyte Esterase Rfl Trace H (Negative) BOBBI/UL Urine RBC 0-2 (0-2) /hpf Urine WBC 11-20 H (0-3) /hpf Ur Squamous Epith Cells Occasional (Few) /hpf Urine Bacteria 4+ H /hpf Urine Casts 0-2 Imaging Data Attestation: I personally reviewed and interpreted this imaging study as follows: Radiologist's impression: Impressions Abdomen X-Ray 04/19/25 11:38 Impression: 1. No acute abnormality. Discharge Plan Discharge Clinical Impression: Hemorrhoids, Constipation UTI (urinary tract infection) Qualifiers: Urinary tract infection type: acute pyelonephritis Qualified Code(s): N10 - Acute pyelonephritis Patient Disposition: Home Condition: Stable Instructions: Antibiotic Form, Hemorrhoids (ED) Additional Instructions: Please return to the ER with any worsening symptoms. Follow-up with primary care provider as needed. Take all medications as prescribed, including regularly scheduled medications. Complete your full dose of antibiotics. Use stool softeners and laxatives to help prevent constipation. You may take Tylenol and or ibuprofen for pain control. Patient Language: Micronesian Prescriptions: New hydrocortisone acetate [Anucort-HC] 25 mg suppository 25 mg RECTAL BID Qty: 24 0RF sulfamethoxazole-trimethoprim [Bactrim DS] 800-160 mg tablet 1 tablet PO Q12H 5 Days Qty: 10 0RF No Action dextroamphetamine-amphetamine 20 mg capsule,extended release 24hr 20 mg PO DAILY meloxicam 15 mg tablet 15 mg PO DIRECTED clindamycin HCl 300 mg capsule 300 mg PO Q8H 10 Days Qty: 30 0RF [id number]-avsammxdz-SR 3.5-10,000-1 mg/mL-unit/mL-% drops,suspension 4 drp LEFT EAR Q8H 7 Days Qty: 10 0RF ibuprofen 800 mg tablet 800 mg PO TID PRN (Reason: pain) Qty: 20 0RF acetaminophen 500 mg capsule 1,000 mg PO Q6H PRN (Reason: pain) Qty: 20 0RF Follow-up/Referrals: Rony Richey MD [Primary Care Provider, Family Practice] Stand Alone Forms: Work/School Release IP Time of Disposition: 11:57
[2025-04-19] MEDS: HYDROcodone/acetaminophen (*CRX) 5-325 MG TABLET 1 TAB PO (11:12)
[2025-04-19 11:17] VITALS: BP 118/72; PULSE 77; RESP 17; TEMP 36.6; O2SAT 100
[2025-04-19 11:30] LABS: Non Pathogenic Casts 0-2
[2025-04-19 11:38] LABS: Add Urine Microscopic? YES; Appearance Urine Sl Cloudy (Clear); Glucose Urine UA Negative (Negative); Leukocyte Esterase Ur Trace LEU/UL (Negative); Nitrate Urine Positive (Negative); Specific Grav Ur 1.020 (1.001-1.035)
[2025-04-19] MEDS: SULFAMETHOXAZOLE/TRIMETHOPRIM 800/160 MG DS TABLET 2 TAB PO (11:53)
== END 2025-04-19 12:03 | disposition home or self-care (01) ==
PROVIDERS: Emergency Provider Registered Nurse; PCP Family Medicine
DX: N10 Acute pyelonephritis (principal); K64.9 Unspecified hemorrhoids; K59.00 Constipation, unspecified; Z87.442 Personal history of urinary calculi
CPT/HCPCS: 74018; 81001; 87086; 87186; 99283; A9270